=== PATIENT | male | born 1945 | race Caucasian/White ===

== ENCOUNTER → 2023-05-30 15:23 | Outpatient (REF) | payer OTHER, SELFPAY ==
[2023-05-31 19:12] LABS: Urine Albumin Negative (Neg - Trace); Urine Bilirubin Negative (Negative); Urine Character Clear (Clear); Urine Color Yellow; Urine Glucose 3+ (Negative); Urine Ketone Trace (Negative); Urine Leukocyte Trace (Negative); Urine Nitrite Negative (Negative); Urine Occult Blood Negative (Negative); Urine Urobilinogen Negative (Neg - 1+)
[2023-05-31 19:43] LABS: Urine Calcium Oxalate Crystals Present
[2023-05-31 19:45] LABS: Urine Red Blood Cell None Seen /HPF (0-2)
[2023-05-31 19:46] LABS: Urine Yeast Few (Negative)
== END ==
LOC: CLAB 15:23
PROVIDERS: ATTENDING PHYSICIAN Specialist
DX: R31.9 Hematuria, unspecified (principal)
CPT/HCPCS: 81003; 81015

== ENCOUNTER → 2023-05-30 16:04 | Outpatient (REF) | payer OTHER, SELFPAY | LOC: HWRAD 16:04 | PROVIDERS: ATTENDING PHYSICIAN Specialist; FAMILY PHYSICIAN Student in an Organized Health Care Education/Training Program | DX: N20.0 Calculus of kidney (principal) | CPT/HCPCS: 74018 ==